=== PATIENT | female | born 1965 | race Caucasian/White ===

== ENCOUNTER → 2017-07-16 | Outpatient (CLI) | payer OTHER ==
--- NOTE | 2017-07-16 09:13 | MR ---
EXAMINATION TYPE: MR shoulder RT wo con DATE OF EXAM: 07/16/2017 8:52 AM COMPARISON: NONE HISTORY: Right shoulder pain TECHNIQUE: Multiplanar, multisequence imaging of the right shoulder is performed without contrast. FINDINGS: There is no evidence of an os acromiale. There are moderate hypertrophic and inflammatory changes involving the right AC joint. The acromion i s neutral. There is diffuse thickening and tendinosis involving the supraspinatus tendon. There is a small intra substance tear of the infraspinatus tendon measuring 8.3 mm in length and 4.5 mm in width. There is n o full-thickness tear or muscular retraction. There is some fraying of the superior glenoid labrum. The biceps tendon is normally situated within the biceps tendon groove and inserts normally upon the biceps anchor. There is some increased fluid surrounding the biceps tendon. I could not exclude some bicipital tendinosis. IMPRESSION: 1. DIFFUSE TENDINOSIS OF THE SUPRASPINATUS TENDON. 2. SMALL, INTRASUBSTANCE TEAR OF THE INFRASPINATUS TENDON. 3. FRAYING OF THE SUPERIOR CARTILAGINOUS GLENOID LABRUM. 4. MODERATE HYPERTROPHIC AND INFLAMMATORY CHANGES INVOLVING THE RIGHT AC JOINT. 5. I CANNOT EXCLUDE SOME DEGREE OF BICIPITAL TENDINOSIS.
== END | disposition home or self-care (01) ==
LOC: RADMRIMAIN 08:09
PROVIDERS: ATTEND Family Medicine
DX: S46.011A Strain of muscle(s) and tendon(s) of the rotator cuff of right shoulder, initial encounter (principal); M67.813 Other specified disorders of tendon, right shoulder; M24.111 Other articular cartilage disorders, right shoulder

== ENCOUNTER 2018-12-04 14:14 | Emergency (ER) | payer OTHER ==
[2018-12-04 14:27] VITALS: RESP 18
--- NOTE | 2018-12-04 14:34 | ED ---
Fall HPI - General Stated Complaint: Fall Time Seen by Provider: 12/04/18 14:15 Source: patient, EMS Mode of arrival: EMS - History of Present Illness Initial Comments: Patient is a 53-year-old female presenting to the emergency Department via EMS, with complaints of back pain and left wrist pain after falling prior to arrival. Patient states she was on a big whiskey barrel when she attempted to walk on it when it went out from underneath her and she fell backwards onto her tailbone. Patient States She Also Put Back Her Wrists to Try to Catch Her Fall and Is Also Having Left Wrist Pain. Patient Denies Prior History of Wrist Surgeries or Lumbar Surgeries. Patient Received 100 of Fentanyl in the Ambulance Prior to Arrival. Patient Denies Numbness and Tingling into Her Extremities. Patient is having pain moving her left wrist. Pt is in magen splint from EMS. Patient has no other complaints right now. Patient denies hitting her head, LOC, pain anywhere else. Patient states her pain is currently 6/10. No other complaints at this time. Upon arrival to ER, vital signs are stable. - Related Data Previous Rx's Medication Instructions Recorded HYDROcodone/APAP 7.5-325MG [Brave 1 tab PO Q6HR PRN 3 Days #12 tab 12/04/18 7.5-325] Allergies Allergy/AdvReac Type Severity Reaction Status Date / Time codeine AdvReac Nausea & Verified 12/04/18 14:27 Vomiting morphine AdvReac Rash/Hives Verified 12/04/18 14:27 Review of Systems ROS Statement: Those systems with pertinent positive or pertinent negative responses have been documented in the HPI. ROS Other: All systems not noted in ROS Statement are negative. Past Medical History Past Medical History: Thyroid Disorder History of Any Multi-Drug Resistant Organisms: None Reported Additional Past Surgical History / Comment(s): gastric bypass Past Psychological History: No Psychological Hx Reported Smoking Status: Current every day smoker Past Alcohol Use History: None Reported Past Drug Use History: None Reported General Exam - General Exam Comments Initial Comments: GENERAL: Well-appearing, well-nourished and in mild distress secondary to pain. HEAD: Atraumatic, normocephalic. EYES: Pupils equal round and reactive to light, extraocular movements intact, sclera anicteric, conjunctiva are normal. ENT: TMs normal, nares patent, oropharynx clear without exudates. Moist mucous membranes. NECK: Normal range of motion, supple without lymphadenopathy or JVD. LUNGS: Breath sounds clear to auscultation bilaterally and equal. No wheezes rales or rhonchi. HEART: Regular rate and rhythm without murmurs, rubs or gallops. ABDOMEN: Soft, nontender, normoactive bowel sounds. No guarding, no rebound. No masses appreciated. : Deferred EXTREMITIES: Pain with palpation of the left wrist, small area of swelling around the head of the radius. Pain with range of motion. Pain with palpation of the sacrum and lumbar spinous processes. No clubbing or cyanosis. NEUROLOGICAL: Cranial nerves II through XII grossly intact. Normal speech. PSYCH: Normal mood, normal affect. SKIN: Warm, Dry, normal turgor, no rashes or lesions noted. Limitations: no limitations Course Vital Signs 12/04/18 12/04/18 12/04/18 14:16 15:34 18:34 Temperature 98.5 F 97.8 F Pulse Rate 71 69 70 Respiratory 18 18 18 Rate Blood Pressure 148/92 146/94 131/78 O2 Sat by Pulse 96 97 97 Oximetry Medical Decision Making - Medical Decision Making Patient is a 53-year-old female presenting with left wrist and back pain after falling off a whiskey barrel that she was trying to walk on. On exam patient has tenderness and swelling of the left wrist and tenderness to palpation in the lumbar spine. X-rays of the left wrist reveal a mildly displaced intra- articular fracture of the left distal radius. No fractures of the right wrist. X-rays of the lumbar spine reveal minimally anterior wedging of L1 which is age indeterminate. Sacrum and coccyx reveal no angulated or displaced tailbone fracture. Patient has been given pain control. Patient was placed in a short arm splint of the left forearm. Patient will follow up with orthopedics tomorrow. Patient will take pain medication alternate with Motrin. Patient is in agreement with this plan of care. Patient is stable for discharge at this time. Return parameters were discussed with the patient and she verbalized understanding. Case discussed with Dr. Kruse. Disposition Clinical Impression: Fall, Lumbar back pain, Left radial head fracture Disposition: HOME SELF-CARE Condition: Stable Instructions (If sedation given, give patient instructions): Wrist Fracture in Adults (ED), Back Pain (ED) Additional Instructions: Please return to the Emergency Department if symptoms worsen or any other concerns. Follow-up with Dr. Cerda as discussed. Alternate between Brave and Motrin for pain relief. Prescriptions: HYDROcodone/APAP 7.5-325MG [Brave 7.5-325] 1 tab PO Q6HR PRN 3 Days #12 tab PRN Reason: Pain Is patient prescribed a controlled substance at d/c from ED?: Yes When asked, does pt state using other controlled substances?: No If prescribed controlled substance>3 days was MAPS reviewed?: Prescribed <3 Days If opioid is for acute pain is fill amount 7 days or less?: Yes If Rx opioid, was Start Talking consent form obtained?: Yes Referrals: Jonatan Herman DO [Primary Care Provider] - 1-2 days Alonso Cerda MD [Medical Doctor] - 1-2 days
[2018-12-04] MEDS ORDERED: KETOROLAC 60 MG/2 ML VIAL IM STA (14:52)
[2018-12-04] MEDS ORDERED: KETOROLAC 30 MG/ML 1 ML VIAL IVP STA (14:58)
--- NOTE | 2018-12-04 15:11 | XR ---
EXAMINATION TYPE: XR wrist complete BILATERAL DATE OF EXAM: 12/04/2018 COMPARISON: NONE HISTORY: Pain TECHNIQUE: Four views submitted of each wrist. FINDINGS: Left wrist demonstrates a lucency involving the distal intra-articular fracture of the radius. Remain ing osseous structures intact. Diffuse osteopenia noted. Right wrist demonstrates no definite acute fracture or dislocation. IMPRESSION: 1. Mildly displaced intra-articular fracture left distal radius. 2 no definite acute fracture of the right radius.
[2018-12-04] MEDS ORDERED: HYDROmorphone 0.5 MG/0.5 ML SYRINGE IVP STA ×2 (15:27→18:04)
--- NOTE | 2018-12-04 16:16 | XR ---
EXAMINATION TYPE: XR lumbar spine 3 views, XR sacrum coccyx 3 views DATE OF EXAM: 12/04/2018 COMPARISON: NONE HISTORY: 53-year-old female with fall and low back and tailbone pain. FINDINGS: Lumbar spine: 5 lumbar type vertebral bodies. Mild degenerative disc disease lower thoracic spine and thoracolumbar junction. Minimal anterior wedging of L1 is age indeterminate and should be correlated clinically. V ertebral body heights are otherwise preserved alignment is maintained. Facet arthropathy lower lumbar spine. Cholecystectomy clips. IUD is positioned high in the pelvis and tilted towards the left. Sacrum and coccyx: SI joints appear symmetric and intact. No delineation to the arcuate lines of the sacrum. No angulate d or displaced sacral or coccygeal fracture seen. IMPRESSION: 1. Lumbar spine: Minimal anterior wedging of L1 is age indeterminate. Correlate for any focal pain at this level. Otherwise, facet arthropathy without additional vertebral compression collapse or malali gnment. 2. Sacrum and coccyx: No angulated or displaced tailbone fracture identified.
[2018-12-04 18:35] VITALS: BP 131/78; PULSE 70; TEMP 97.8
== END 2018-12-04 18:34 | disposition home or self-care (01) ==
LOC: EC 14:14
DX: S52.122A Displaced fracture of head of left radius, initial encounter for closed fracture (principal); M54.5 Low back pain; S52.502A Unspecified fracture of the lower end of left radius, initial encounter for closed fracture; F17.200 Nicotine dependence, unspecified, uncomplicated; Z88.5 Allergy status to narcotic agent; W17.89XA Other fall from one level to another, initial encounter; Y93.01 Activity, walking, marching and hiking; Y92.89 Other specified places as the place of occurrence of the external cause
CPT/HCPCS: 73110; 72100; 72220; 99284; 29125; 96374; 96375; 96376; J1885; J1170

== ENCOUNTER → 2018-12-12 | Outpatient (CLI) | payer OTHER ==
--- NOTE | 2018-12-13 08:26 | NM ---
EXAMINATION TYPE: NM bone scan whole body DATE OF EXAM: 12/12/2018 COMPARISON: X-rays 12/04/2018 HISTORY: Back pain Delayed whole-body scanning was performed following the injection of 23.9 mCi Tc 99m MDP. Images acq uired 5.5 hours post injection. FINDINGS: There is intense linear uptake at the level of L1 suspicious for a recent compression fract ure corresponding to the x-ray abnormality. Mild abnormal uptake in L4-5 and L5-S1 greater on the lef t is likely degenerative. Faint uptake throughout the thoracic spine likely degenerative. Abnormal uptake involving the feet and shoulders likely arthritic. There is a more localized focal ab normal area of uptake involving the left proximal tibia for which x-ray correlation is just. Abnormal uptake involving the coccyx noted. No definite corresponding x-ray abnormality. IMPRESSION: 1. Intense abnormal uptake at the approximate level of L1 suspicious for a compression fracture. 2. Nonspecific uptake at the level coccyx correlate clinically pain. 3. Focal increased uptake involving the lateral margin of the proximal left tibia for which x-ray cor relation is recommended. Correlate for history of intraosseous lesion or fracture. 4. Faint uptake throughout the thoracic spine and lower lumbar spine likely degenerative.
== END | disposition home or self-care (01) ==
LOC: RADNMMAIN 10:34
PROVIDERS: ATTEND Physical Medicine & Rehabilitation
DX: M47.817 Spondylosis without myelopathy or radiculopathy, lumbosacral region (principal); M54.5 Low back pain
CPT/HCPCS: 78306; A9503

== ENCOUNTER → 2019-11-22 | Outpatient (CLI) | payer OTHER ==
--- NOTE | 2019-11-29 11:17 | MM ---
Reason for exam: screening (asymptomatic). Last mammogram was performed 4 years and 4 months ago. History: Patient is postmenopausal. Physical Findings: A clinical breast exam by your physician is recommended on an annual basis and results should be correlated with mammographic findings. MG 3D Screening Mammo W/Cad Bilateral CC and MLO view(s) were taken. Prior study comparison: July 21, 2015, mammogram, performed at [place]. July 18, 2014, mammogram, performed at [place]. The breast tissue is heterogeneously dense. This may lower the sensitivity of mammography. Finding: There are typically benign round calcifications in both breasts. There is no discrete abnormality. ASSESSMENT: Benign, BI-RAD 2 RECOMMENDATION: Routine screening mammogram of both breasts in 1 year.
== END | disposition home or self-care (01) ==
LOC: RADMAMWWP 16:44
PROVIDERS: ATTEND Family Medicine
DX: Z12.31 Encounter for screening mammogram for malignant neoplasm of breast (principal)
CPT/HCPCS: 77063; 77067